=== PATIENT | male | born 1945 | race Hispanic/Latino ===

== ENCOUNTER 2021-04-18 13:00 | Observation (INO) | payer MEDICARE ==
[~2021-04-18] VITALS: Ht 172.7 cm; Wt 96.6 kg
[2021-04-18 10:46] LABS: EOSINOPHILS % (AUTO) 2.2 % (0.0-8.0); HEMATOCRIT 40.9 % (42-54); LYMPHOCYTES % (AUTO) 25.1 % (21.0-51.0); MEAN CORPUSCULAR HEMOGLOBIN 31.4 pg (27.0-33.0); MEAN CORPUSCULAR HGB CONC 33.5 g/dL (32.0-36.0); MEAN CORPUSCULAR VOLUME 93.8 fL (79-99); MONOCYTES % (AUTO) 11.1 % (3.0-13.0); NEUTROPHILS % (AUTO) 59.9 % (40.0-77.0); PLATELET COUNT (AUTO) 207 K/uL (130-400); RED BLOOD CELL COUNT(AUTO) 4.36 MIL/uL (4.50-6.20); WHITE BLOOD COUNT (AUTO) 7.4 K/uL (4.8-10.8)
[2021-04-18 10:53] LABS: APPEARANCE,URINE Clear (CLEAR); BILIRUBIN,URINE Negative (NEGATIVE); COLOR,URINE Yellow (YELLOW); GLUCOSE, URINE (UA) Negative (NEGATIVE); KETONES,URINE Negative (NEGATIVE); LEUKOCYTE ESTERASE ,URINE Negative (NEGATIVE); NITRATE,URINE Negative (NEGATIVE); OCCULT BLOOD,URINE Negative (NEGATIVE); PH,URINE 5.5 (5.0-8.0); PROTEIN,URINE Negative (NEGATIVE)
[2021-04-18 10:57] LABS: CREATININE 0.8 mg/dL (0.5-1.5); POTASSIUM 5.1 mmol/L (3.5-5.1); PROTHROMBIN TIME 10.9 SEC (9.6-11.6)
[2021-04-19 11:18] VITALS: BP 150/76
[2021-04-19] MEDS ORDERED: METF-444 PO (12:06)
[2021-04-19] MEDS ORDERED: IMIP50TA6 PO (12:06)
[2021-04-19] MEDS ORDERED: PIOG15TA66 PO (12:06)
[2021-04-19] MEDS ORDERED: ERGO500093 PO (12:06)
[2021-04-19] MEDS ORDERED: AEC81 PO (12:06)
[2021-04-19] MEDS ORDERED: BRIM5DRO4 OU (12:06)
[2021-04-19] MEDS ORDERED: ZINC220T4 PO (12:06)
[2021-04-19] MEDS ORDERED: TIMO1DRO5 OU (12:06)
[2021-04-19] MEDS ORDERED: LATA7.5D OU (12:06)
[2021-04-19] MEDS ORDERED: ATEN50TA PO (12:06)
[2021-04-19] MEDS ORDERED: LISI10TA24 PO (12:06)
[2021-04-19] MEDS ORDERED: ATOR40TA71 PO (12:06)
[2021-04-20] VITALS (23 sets, daily range): BP systolic 110–167; BP diastolic 54–87
[2021-04-20] MEDS ORDERED: CEFAZOLIN SODIUM 2 GM VIAL IV SCH (05:00)
[2021-04-20] MEDS ORDERED: 0.9%NACL 1000ML 1,000 ML IV ONE (07:59)
[2021-04-20] MEDS ORDERED: CEFAZOLIN SODIUM 1 GM VIAL ONE ×2 (07:59→12:01)
[2021-04-20] MEDS ORDERED: LIDOCAINE PF 100MG/5ML (2%) SYRINGE 5ML ONE (11:23)
[2021-04-20] MEDS ORDERED: PROPOFOL 10 MG/ML 20ML VIAL IV ONE (11:23)
[2021-04-20] MEDS ORDERED: MIDAZOLAM HCL 1 MG/ML 2ML VIAL ONE (11:23)
[2021-04-20] MEDS ORDERED: SUCCINYLCHOLINE CHLORIDE 20 MG/ML 10 ML VIAL ONE (11:23)
[2021-04-20] MEDS ORDERED: FENTANYL CITRATE PF 50 MCG/1 ML 2ML VIAL ONE (11:24)
[2021-04-20] MEDS ORDERED: ROCURONIUM 10MG/1ML SYR 10 MG/ML ML ONE ×2 (11:24→12:51)
[2021-04-20] MEDS ORDERED: ROPIVACAINE 0.5% 5MG/ML 30ML IJ ONE ×2 (11:25→12:05)
[2021-04-20] MEDS ORDERED: DEXAMETHASONE SOD PHOSPHATE 10MG/ML 1ML VIAL ONE (12:00)
[2021-04-20] MEDS ORDERED: TRANEXAMIC ACID 1000MG/10ML ONE ×2 (12:01→15:10)
[2021-04-20] MEDS ORDERED: EPHEDRINE SULFATE 50 MG/ML AMPULE ONE (12:12)
[2021-04-20] MEDS ORDERED: GLYCOPYRROLATE 1 MG/5 ML SYRINGE ONE ×2 (12:22→14:50)
[2021-04-20] MEDS ORDERED: PHENYLEPHRINE HCL 10 MG/ML 1ML VIAL IV ONE (12:28)
[2021-04-20] MEDS ORDERED: LIDOCAINE HCL-MPF 1% 2ML VIAL IV PRN (14:30)
[2021-04-20] MEDS ORDERED: POTASSIUM CHLORIDE 10% ELIXIR 20 MEQ/15 ML UDCUP PO PRN (14:30)
[2021-04-20] MEDS ORDERED: ONDANSETRON 4MG INJ IVP PRN (14:30)
[2021-04-20] MEDS ORDERED: KCL 20 MEQ ERTAB PO PRN (14:30)
[2021-04-20] MEDS ORDERED: TEMAZEPAM 15 MG CAPSULE PO PRN (14:30)
[2021-04-20] MEDS ORDERED: POTASSIUM CHLORIDE 20MEQ/100ML 100 ML IV PRN (14:30)
[2021-04-20] MEDS: ACETAMINOPHEN 500 MG TABLET PO SCH ×2 (14:30→21:22)
[2021-04-20] MEDS ORDERED: TRAMADOL HCL 50 MG TABLET PO PRN (14:30)
[2021-04-20] MEDS ORDERED: FERROUS FUMARATE 324 MG TABLET PO PRN (14:30)
[2021-04-20] MEDS ORDERED: DiphenhydrAMINE HCL 50 MG/ML VIAL IVP PRN (14:30)
[2021-04-20] MEDS ORDERED: KETOROLAC 15MG/ML VIAL (15MG/ML) IV PRN (14:30)
[2021-04-20] MEDS ORDERED: NEOSTIGMINE 5MG/5ML SYR IV ONE (14:50)
[2021-04-20] MEDS: 0.9%NACL 1000ML 1,000 ML IV SCH ×2 (15:09→16:30)
[2021-04-20] MEDS ORDERED: MEPERIDINE-PF 25 MG/ML SYG ONE ×2 (15:30→15:39)
[2021-04-20] MEDS: OXYCODONE HCL 5 MG TAB PO PRN (16:27)
[2021-04-20] MEDS: INSULIN HUMULIN R 100 UNIT/ML 3ML SQ SCH ×2 (16:30→21:00)
[2021-04-20] MEDS: TIMOLOL MALEATE 0.5% 5 ML BOTTLE OU SCH (21:00)
[2021-04-20] MEDS: BRIMONIDINE TARTRATE 0.2% 5 ML BOTTLE OU SCH (21:00)
[2021-04-20] MEDS: LATANOPROST 2.5 ML DROPS OU SCH (21:00)
[2021-04-20] MEDS: CEFAZOLIN SODIUM 1 GM VIAL IVP SCH (21:17)
[2021-04-20] MEDS: ATORVASTATIN 40 MG TABLET PO SCH (21:19)
[2021-04-20] MEDS: CELECOXIB 200 MG CAP PO SCH (21:19)
[2021-04-20] MEDS: FAMOTIDINE 20MG TAB PO SCH (21:19)
[2021-04-20] MEDS: PREGABALIN 25 MG CAP PO SCH (21:19)
[2021-04-20] MEDS: ASPIRIN 81 MG EC TAB PO SCH (21:19)
[2021-04-21] MEDS: 0.9%NACL 1000ML 1,000 ML IV SCH ×2 (02:15→10:30)
[2021-04-21] MEDS: CEFAZOLIN SODIUM 1 GM VIAL IVP SCH (03:18)
[2021-04-21 04:30] VITALS: BP 129/69
[2021-04-21] MEDS: ACETAMINOPHEN 500 MG TABLET PO SCH ×3 (05:40→21:09)
[2021-04-21 05:50] LABS: CREATININE 0.7 mg/dL (0.5-1.5); POTASSIUM 3.8 mmol/L (3.5-5.1)
[2021-04-21 05:54] LABS: HEMATOCRIT 35.7 % (42-54); MEAN CORPUSCULAR HEMOGLOBIN 30.7 pg (27.0-33.0); MEAN CORPUSCULAR HGB CONC 32.8 g/dL (32.0-36.0); MEAN CORPUSCULAR VOLUME 93.7 fL (79-99); RED BLOOD CELL COUNT(AUTO) 3.81 MIL/uL (4.50-6.20); WHITE BLOOD COUNT (AUTO) 8.3 K/uL (4.8-10.8)
[2021-04-21] MEDS: INSULIN HUMULIN R 100 UNIT/ML 3ML SQ SCH ×4 (06:52→21:00)
[2021-04-21 07:59] VITALS: BP 113/55
[2021-04-21] MEDS: PIOGLITAZONE 15MG TAB PO SCH (08:59)
[2021-04-21] MEDS: METFORMIN HCL 500 MG TABLET PO SCH ×2 (08:59→17:24)
[2021-04-21] MEDS: CELECOXIB 200 MG CAP PO SCH ×2 (08:59→21:07)
[2021-04-21] MEDS: ASPIRIN 81 MG EC TAB PO SCH ×2 (09:00→21:07)
[2021-04-21] MEDS: BRIMONIDINE TARTRATE 0.2% 5 ML BOTTLE OU SCH ×2 (09:00→21:00)
[2021-04-21] MEDS ORDERED: LISINOPRIL 10 MG TABLET PO SCH (09:00)
[2021-04-21] MEDS: TIMOLOL MALEATE 0.5% 5 ML BOTTLE OU SCH ×2 (09:00→21:00)
[2021-04-21] MEDS: FAMOTIDINE 20MG TAB PO SCH ×2 (09:01→21:07)
[2021-04-21] MEDS: PREGABALIN 25 MG CAP PO SCH ×2 (09:01→21:07)
[2021-04-21] MEDS: TAMSULOSIN HCL 0.4 MG CAP.ER.24H PO SCH (09:01)
[2021-04-21] MEDS: AMITRIPTYLINE 25 MG TABLET PO SCH (09:02)
[2021-04-21] MEDS: POLYETHYLENE GLYCOL 3350 17 GM POWD.PACK PO SCH (09:05)
[2021-04-21] MEDS: CALCIUM CARB 500MG PO PRN (10:24)
[2021-04-21] MEDS: OXYCODONE HCL 5 MG TAB PO PRN ×3 (10:24→21:08)
[2021-04-21] MEDS: ATENOLOL 50 MG TABLET PO SCH (10:38)
[2021-04-21 11:08] VITALS: BP 131/74
[2021-04-21 15:45] VITALS: BP 134/75
[2021-04-21 20:43] VITALS: BP 124/61
[2021-04-21] MEDS: LATANOPROST 2.5 ML DROPS OU SCH (21:00)
[2021-04-21] MEDS: ATORVASTATIN 40 MG TABLET PO SCH (21:07)
[2021-04-22 00:25] VITALS: BP 122/62
[2021-04-22 04:37] VITALS: BP 132/72
[2021-04-22] MEDS: INSULIN HUMULIN R 100 UNIT/ML 3ML SQ SCH ×2 (05:46→11:30)
[2021-04-22] MEDS: ACETAMINOPHEN 500 MG TABLET PO SCH ×2 (07:02→14:30)
[2021-04-22 07:05] VITALS: BP 124/68
[2021-04-22] MEDS: OXYCODONE HCL 5 MG TAB PO PRN ×2 (07:59→12:58)
[2021-04-22] MEDS: BRIMONIDINE TARTRATE 0.2% 5 ML BOTTLE OU SCH (09:00)
[2021-04-22] MEDS: TIMOLOL MALEATE 0.5% 5 ML BOTTLE OU SCH (09:00)
[2021-04-22] MEDS: CALCIUM CARB 500MG PO PRN (09:02)
[2021-04-22] MEDS: AMITRIPTYLINE 25 MG TABLET PO SCH (09:02)
[2021-04-22] MEDS: TAMSULOSIN HCL 0.4 MG CAP.ER.24H PO SCH (09:02)
[2021-04-22] MEDS: ASPIRIN 81 MG EC TAB PO SCH (09:02)
[2021-04-22] MEDS: PIOGLITAZONE 15MG TAB PO SCH (09:02)
[2021-04-22] MEDS: CELECOXIB 200 MG CAP PO SCH (09:02)
[2021-04-22] MEDS: ATENOLOL 50 MG TABLET PO SCH (09:03)
[2021-04-22] MEDS: PREGABALIN 25 MG CAP PO SCH (09:03)
[2021-04-22] MEDS: FAMOTIDINE 20MG TAB PO SCH (09:03)
[2021-04-22] MEDS: METFORMIN HCL 500 MG TABLET PO SCH ×2 (09:03→16:47)
[2021-04-22] MEDS: POLYETHYLENE GLYCOL 3350 17 GM POWD.PACK PO SCH (09:04)
[2021-04-22] MEDS ORDERED: HYDR-4060 PO (10:05)
[2021-04-22] MEDS ORDERED: AEC81 PO (10:05)
[2021-04-22 11:10] VITALS: BP 114/56
[2021-04-23] MEDS ORDERED: ERGOCALCIFEROL (VITAMIN D2) 50,000 UNIT CAPSULE PO SCH (09:00)
[2021-04-23] MEDS ORDERED: BISACODYL 10 MG SUPP.RECT RC PRN (14:30)
== END 2021-04-22 18:00 | disposition home health service (06) ==
LOC: EDSTATUS 13:00 → DAHIP 04-20 07:38 → 3AH 04-20 16:12
PROVIDERS: ADMIT Orthopaedic Surgery; ATTEND Orthopaedic Surgery
DX: M17.11 Unilateral primary osteoarthritis, right knee (principal); Z20.822 Contact with and (suspected) exposure to COVID-19; I10 Essential (primary) hypertension; I25.10 Atherosclerotic heart disease of native coronary artery without angina pectoris; M25.561 Pain in right knee; G89.29 Other chronic pain; D62 Acute posthemorrhagic anemia; E78.5 Hyperlipidemia, unspecified; Z85.46 Personal history of malignant neoplasm of prostate; Z87.891 Personal history of nicotine dependence; Z79.899 Other long term (current) drug therapy; Z98.890 Other specified postprocedural states
CPT/HCPCS: 27447; 36415 ×2; 80048 ×2; 81003; 82948 ×9; 85025; 85027; 85610; 87088; 87635; 87641; 96374; 96375; 96376; 97039 ×3; 97116 ×4; 97161; 97530 ×4; A4215; A4221; A4222; A4223; A4649 ×5; A4663; A4930 ×3; A5120; A9272; C1776; G0378 ×50; J0330; J0690 ×4; J1100; J1885; J2001; J2175 ×2; J2250; J2370; J2704; J2710; J2795 ×2; J3010; J3490 ×5; J7030 ×4

== ENCOUNTER 2021-08-27 08:31 | Emergency (ER) | payer MEDICARE ==
[~2021-08-27] VITALS: Ht 172.7 cm; Wt 93.4 kg
[~2021-08-27 08:31] MED LIST: AEC81 PO; ATEN50TA PO; ATOR40TA71 PO; BRIM5DRO4 OU; ERGO500093 PO; HYDR-4060 PO; IMIP50TA6 PO; LATA7.5D OU; LISI10TA24 PO; METF-444 PO; PIOG15TA66 PO; TIMO1DRO5 OU; ZINC220T4 PO
[2021-08-27 09:52] VITALS: BP 122/65
[2021-08-27] MEDS ORDERED: NAPR-1196 PO (10:10)
== END 2021-08-27 10:16 | disposition home or self-care (01) ==
LOC: EDH 08:31
DX: M17.12 Unilateral primary osteoarthritis, left knee (principal); I10 Essential (primary) hypertension; E11.9 Type 2 diabetes mellitus without complications; Z79.84 Long term (current) use of oral hypoglycemic drugs
CPT/HCPCS: 29505; 73562

== ENCOUNTER 2021-09-29 07:42 | Observation (INO) | payer MEDICARE ==
[2021-09-27 09:23] LABS: BASOPHILS % (AUTO) 0.7 % (0.0-5.0); EOSINOPHILS % (AUTO) 2.3 % (0.0-8.0); HEMATOCRIT 41.2 % (42-54); LYMPHOCYTES % (AUTO) 21.2 % (21.0-51.0); MEAN CORPUSCULAR HEMOGLOBIN 29.4 pg (27.0-33.0); MEAN CORPUSCULAR VOLUME 91.8 fL (79-99); MONOCYTES % (AUTO) 11.7 % (3.0-13.0); NEUTROPHILS % (AUTO) 63.4 % (40.0-77.0); PLATELET COUNT (AUTO) 216 K/uL (130-400); RED BLOOD CELL COUNT(AUTO) 4.49 MIL/uL (4.50-6.20); RED CELL DISTRIBUTION WIDTH 14.2 % (11.0-15.5); WHITE BLOOD COUNT (AUTO) 7.5 K/uL (4.8-10.8)
[2021-09-27 09:26] LABS: APPEARANCE,URINE CLEAR (CLEAR); BILIRUBIN,URINE NEGATIVE (NEGATIVE); COLOR,URINE YELLOW (YELLOW); GLUCOSE, URINE (UA) NEGATIVE (NEGATIVE); KETONES,URINE NEGATIVE (NEGATIVE); LEUKOCYTE ESTERASE ,URINE NEGATIVE (NEGATIVE); NITRATE,URINE POSITIVE (NEGATIVE); OCCULT BLOOD,URINE NEGATIVE (NEGATIVE); PROTEIN,URINE NEGATIVE (NEGATIVE)
[2021-09-27 09:32] LABS: CREATININE 0.8 mg/dL (0.5-1.5); POTASSIUM 4.7 mmol/L (3.5-5.1)
[2021-09-27 09:35] LABS: INR 0.95 (0.85-1.15); PROTHROMBIN TIME 10.4 SEC (9.6-11.6)
[2021-09-27 10:12] LABS: BACTERIA,URINE Few /HPF (None Seen); RBC,URINE 0-1 /HPF (0-1); SQUAMOUS EPITHELIAL CELL,UR 0-2 /HPF (0-2); WBC,URINE 0-1 /HPF (0-1)
[2021-09-28 14:42] VITALS: BP 121/64
[~2021-09-29] VITALS: Ht 172.7 cm; Wt 97.6 kg
[2021-09-29] VITALS (25 sets, daily range): BP systolic 108–142; BP diastolic 58–86
[~2021-09-29 07:42] MED LIST changes: +CEFAZOLIN SODIUM 1 GM VIAL IRRIG ONE; +CEFAZOLIN SODIUM 2 GM VIAL IV ONE; -HYDR-4060 PO; -PIOG15TA66 PO; -TIMO1DRO5 OU; +TRANEXAMIC ACID 1000MG/10ML IV ONE
[2021-09-29] MEDS ORDERED: CEFAZOLIN SODIUM 1 GM VIAL IVP ONE (08:00)
[2021-09-29] MEDS ORDERED: 0.9%NACL 1000ML 1,000 ML IV ONE (08:29)
[2021-09-29] MEDS ORDERED: ACETAMINOPHEN 500 MG TABLET ONE (09:42)
[2021-09-29] MEDS ORDERED: CELECOXIB 200 MG CAP ONE (09:42)
[2021-09-29] MEDS ORDERED: KETOROLAC 15MG/ML VIAL (15MG/ML) ONE (09:42)
[2021-09-29] MEDS ORDERED: CEFAZOLIN SODIUM 1 GM VIAL ONE (10:42)
[2021-09-29] MEDS ORDERED: TRANEXAMIC ACID 1000MG/10ML ONE ×2 (10:42→15:34)
[2021-09-29] MEDS ORDERED: FENTANYL CITRATE PF 50 MCG/1 ML 2ML VIAL ONE ×2 (11:36→14:19)
[2021-09-29] MEDS ORDERED: PROPOFOL 10 MG/ML 20ML VIAL IV ONE (11:36)
[2021-09-29] MEDS ORDERED: GLYCOPYRROLATE 1 MG/5 ML SYRINGE ONE (11:39)
[2021-09-29] MEDS ORDERED: ROCURONIUM 10MG/1ML SYR 10 MG/ML ML ONE ×2 (11:39→13:11)
[2021-09-29] MEDS ORDERED: LIDOCAINE PF 100MG/5ML (2%) SYRINGE 5ML ONE (11:39)
[2021-09-29] MEDS ORDERED: ROPIVACAINE 0.5% 5MG/ML 30ML IJ ONE (12:16)
[2021-09-29] MEDS ORDERED: CEFAZOLIN SODIUM 2 GM VIAL IV ONE (12:45)
[2021-09-29] MEDS ORDERED: TRANEXAMIC ACID 1000MG/10ML IV ONE (12:55)
[2021-09-29] MEDS ORDERED: CEFAZOLIN SODIUM 1 GM VIAL IRRIG ONE (13:12)
[2021-09-29] MEDS ORDERED: MEPERIDINE-PF 25 MG/ML SYG ONE (13:43)
[2021-09-29] MEDS ORDERED: ONDANSETRON 4MG INJ ONE (13:44)
[2021-09-29] MEDS ORDERED: ONDANSETRON 4MG INJ IVP PRN (15:00)
[2021-09-29] MEDS: 0.9%NACL 1000ML 1,000 ML IV SCH ×2 (15:00→20:41)
[2021-09-29] MEDS ORDERED: CALCIUM CARB 500MG PO PRN (15:00)
[2021-09-29] MEDS: ACETAMINOPHEN 500 MG TABLET PO SCH ×2 (15:00→20:39)
[2021-09-29] MEDS ORDERED: TRAMADOL HCL 50 MG TABLET PO PRN (15:00)
[2021-09-29] MEDS ORDERED: KCL 20 MEQ ERTAB PO PRN (15:00)
[2021-09-29] MEDS ORDERED: POTASSIUM CHLORIDE 20MEQ/100ML 100 ML IV PRN (15:00)
[2021-09-29] MEDS ORDERED: DiphenhydrAMINE HCL 50 MG/ML VIAL IVP PRN (15:00)
[2021-09-29] MEDS ORDERED: KETOROLAC 15MG/ML VIAL (15MG/ML) IV PRN (15:00)
[2021-09-29] MEDS ORDERED: LIDOCAINE HCL-MPF 1% 2ML VIAL IV PRN (15:00)
[2021-09-29] MEDS ORDERED: FERROUS FUMARATE 324 MG TABLET PO PRN (15:00)
[2021-09-29] MEDS ORDERED: OXYCODONE HCL 5 MG TAB PO PRN (15:00)
[2021-09-29] MEDS ORDERED: POTASSIUM CHLORIDE 10% ELIXIR 20 MEQ/15 ML UDCUP PO PRN (15:00)
[2021-09-29] MEDS ORDERED: NEOSTIGMINE 5MG/5ML SYR IV ONE (15:21)
[2021-09-29] MEDS: INSULIN HUMULIN R 100 UNIT/ML 3ML SQ SCH ×2 (16:30→20:59)
[2021-09-29] MEDS: OXYCODONE HCL 5 MG TAB PO PRN ×2 (18:27→22:16)
[2021-09-29] MEDS: CEFAZOLIN SODIUM 1 GM VIAL IVP SCH (20:38)
[2021-09-29] MEDS: FAMOTIDINE 20MG TAB PO SCH (20:39)
[2021-09-29] MEDS: ATORVASTATIN 40 MG TABLET PO SCH (20:39)
[2021-09-29] MEDS: CELECOXIB 200 MG CAP PO SCH (20:40)
[2021-09-29] MEDS: LATANOPROST 2.5 ML DROPS OU SCH (20:41)
[2021-09-29] MEDS: BRIMONIDINE TARTRATE 0.2% 5 ML BOTTLE OU SCH (20:41)
[2021-09-29] MEDS ORDERED: PHARMACY COMMUNICATION MISC SCH (21:00)
[2021-09-29] MEDS ORDERED: HYDROMORPHONE PCA 10 MG/50 ML 50 ML IV ONE (23:06)
[2021-09-29] MEDS ORDERED: NALOXONE HCL 0.4 MG/1 ML ML IVP PRN (23:30)
[2021-09-29] MEDS ORDERED: HYDROMORPHONE PCA 10 MG/50 ML 50 ML IV PRN (23:30)
[2021-09-30] VITALS (7 sets, daily range): BP systolic 100–117; BP diastolic 55–65
[2021-09-30] MEDS: CEFAZOLIN SODIUM 1 GM VIAL IVP SCH (04:23)
[2021-09-30] MEDS: ACETAMINOPHEN 500 MG TABLET PO SCH ×3 (04:24→23:33)
[2021-09-30 05:04] LABS: MEAN CORPUSCULAR HEMOGLOBIN 29.2 pg (27.0-33.0); MEAN CORPUSCULAR HGB CONC 31.8 g/dL (32.0-36.0); RED BLOOD CELL COUNT(AUTO) 4.24 MIL/uL (4.50-6.20); RED CELL DISTRIBUTION WIDTH 14.3 % (11.0-15.5); WHITE BLOOD COUNT (AUTO) 6.9 K/uL (4.8-10.8)
[2021-09-30 05:09] LABS: CREATININE 0.8 mg/dL (0.5-1.5)
[2021-09-30] MEDS: INSULIN HUMULIN R 100 UNIT/ML 3ML SQ SCH ×4 (05:45→20:56)
[2021-09-30] MEDS: OXYCODONE HCL 5 MG TAB PO PRN ×2 (07:52→20:14)
[2021-09-30] MEDS: ASPIRIN 81 MG EC TAB PO SCH ×2 (08:47→20:15)
[2021-09-30] MEDS: METFORMIN HCL 500 MG TABLET PO SCH ×2 (08:47→16:27)
[2021-09-30] MEDS: BRIMONIDINE TARTRATE 0.2% 5 ML BOTTLE OU SCH ×2 (08:47→20:15)
[2021-09-30] MEDS: CELECOXIB 200 MG CAP PO SCH ×2 (08:48→20:15)
[2021-09-30] MEDS: LISINOPRIL 10 MG TABLET PO SCH (08:48)
[2021-09-30] MEDS: ATENOLOL 50 MG TABLET PO SCH (08:48)
[2021-09-30] MEDS: FAMOTIDINE 20MG TAB PO SCH ×2 (08:48→20:15)
[2021-09-30] MEDS: TAMSULOSIN HCL 0.4 MG CAP.ER.24H PO SCH (08:48)
[2021-09-30] MEDS: POLYETHYLENE GLYCOL 3350 17 GM POWD.PACK PO SCH (08:50)
[2021-09-30] MEDS: **HM**(Zinc Sulfate (Zinc) 50 MG PO SCH (08:51)
[2021-09-30] MEDS ORDERED: ASPIRIN 81 MG EC TAB PO SCH (09:00)
[2021-09-30] MEDS: AMITRIPTYLINE 25 MG TABLET PO SCH (09:01)
[2021-09-30] MEDS: 0.9%NACL 1000ML 1,000 ML IV SCH (11:00)
[2021-09-30] MEDS: ATORVASTATIN 40 MG TABLET PO SCH (20:15)
[2021-09-30] MEDS: LATANOPROST 2.5 ML DROPS OU SCH (20:15)
[2021-10-01 04:03] VITALS: BP 111/54
[2021-10-01] MEDS: INSULIN HUMULIN R 100 UNIT/ML 3ML SQ SCH ×2 (06:00→11:30)
[2021-10-01] MEDS: ACETAMINOPHEN 500 MG TABLET PO SCH (06:03)
[2021-10-01 08:07] VITALS: BP 129/57
[2021-10-01] MEDS ORDERED: HYDR-4060 PO (08:18)
[2021-10-01] MEDS ORDERED: AEC81 PO (08:18)
[2021-10-01] MEDS: METFORMIN HCL 500 MG TABLET PO SCH (08:59)
[2021-10-01] MEDS: ATENOLOL 50 MG TABLET PO SCH (08:59)
[2021-10-01] MEDS: LISINOPRIL 10 MG TABLET PO SCH (08:59)
[2021-10-01] MEDS: CELECOXIB 200 MG CAP PO SCH (08:59)
[2021-10-01] MEDS: AMITRIPTYLINE 25 MG TABLET PO SCH (08:59)
[2021-10-01] MEDS: FAMOTIDINE 20MG TAB PO SCH (09:00)
[2021-10-01] MEDS: OXYCODONE HCL 5 MG TAB PO PRN (09:00)
[2021-10-01] MEDS: BRIMONIDINE TARTRATE 0.2% 5 ML BOTTLE OU SCH (09:00)
[2021-10-01] MEDS: POLYETHYLENE GLYCOL 3350 17 GM POWD.PACK PO SCH (09:00)
[2021-10-01] MEDS: ASPIRIN 81 MG EC TAB PO SCH (09:00)
[2021-10-01] MEDS: TAMSULOSIN HCL 0.4 MG CAP.ER.24H PO SCH (09:00)
[2021-10-01] MEDS: **HM**(Zinc Sulfate (Zinc) 50 MG PO SCH (09:00)
[2021-10-01] MEDS ORDERED: ERGOCALCIFEROL (VITAMIN D2) 50,000 UNIT CAPSULE PO SCH (09:00)
[2021-10-01 11:32] VITALS: BP 100/48
[2021-10-02] MEDS ORDERED: BISACODYL 10 MG SUPP.RECT RC PRN (15:00)
== END 2021-10-01 15:00 | disposition home or self-care (01) ==
LOC: DAH 07:42 → DAHIP 07:43 → INTOOBSV 07:43 → DAH 07:43 → 4BH 17:02
PROVIDERS: ADMIT Orthopaedic Surgery; ATTEND Orthopaedic Surgery
DX: M17.12 Unilateral primary osteoarthritis, left knee (principal); Z20.822 Contact with and (suspected) exposure to COVID-19; M25.562 Pain in left knee; G89.29 Other chronic pain; I10 Essential (primary) hypertension; I25.10 Atherosclerotic heart disease of native coronary artery without angina pectoris; D64.9 Anemia, unspecified; E78.5 Hyperlipidemia, unspecified; Z87.891 Personal history of nicotine dependence; Z96.651 Presence of right artificial knee joint; Z79.82 Long term (current) use of aspirin; Z79.84 Long term (current) use of oral hypoglycemic drugs; Z79.899 Other long term (current) drug therapy; Z98.890 Other specified postprocedural states; Z79.4 Long term (current) use of insulin
CPT/HCPCS: 27447; 36415 ×2; 64447; 76942; 80048 ×2; 81001; 82948 ×8; 85025; 85027; 85610; 87088; 87635; 87641; 96374; 96375 ×2; 96376; 97039 ×2; 97116 ×4; 97161; 97530 ×2; A4215; A4221; A4222; A4223 ×2; A4600; A4649 ×4; A4663; A5120; A9272; C1776; C9803; G0378 ×44; J0690 ×6; J1170; J1200; J1885 ×2; J2001; J2175; J2405; J2704; J2710; J2795; J3010 ×2; J3490 ×4; J7030 ×2; J7120

== ENCOUNTER → 2023-08-15 | Outpatient (CLI) | payer MEDICARE ==
[~2023-08-15] MED LIST changes: -BRIM5DRO4 OU; +BRIM5DRO5 OU; -CEFAZOLIN SODIUM 1 GM VIAL IRRIG ONE; -CEFAZOLIN SODIUM 2 GM VIAL IV ONE; +HYDR-4060 PO; -TRANEXAMIC ACID 1000MG/10ML IV ONE
== END | disposition home or self-care (01) ==
LOC: SHCH 14:29
PROVIDERS: ATTEND Internal Medicine Cardiovascular Disease
DX: I65.23 Occlusion and stenosis of bilateral carotid arteries (principal); I70.203 Unspecified atherosclerosis of native arteries of extremities, bilateral legs; I77.9 Disorder of arteries and arterioles, unspecified; I10 Essential (primary) hypertension; I25.10 Atherosclerotic heart disease of native coronary artery without angina pectoris; E78.2 Mixed hyperlipidemia; E66.9 Obesity, unspecified; I87.2 Venous insufficiency (chronic) (peripheral); Z68.31 Body mass index [BMI] 31.0-31.9, adult; Z79.899 Other long term (current) drug therapy
CPT/HCPCS: 93880; 93925

== ENCOUNTER → 2024-03-24 | Outpatient (CLI) | payer MEDICARE ==
[~2024-03-24] MED LIST changes: +IMIP50TA PO; -IMIP50TA6 PO
== END | disposition home or self-care (01) ==
LOC: SHCH 10:42
PROVIDERS: ATTEND Internal Medicine Cardiovascular Disease
DX: I65.23 Occlusion and stenosis of bilateral carotid arteries (principal)
CPT/HCPCS: 93880